=== PATIENT | female | born 1965 | race Caucasian/White ===

== ENCOUNTER 2017-02-17 18:28 | Emergency (ER) | payer OTHER ==
--- NOTE | ~2017-02-17 | CR151 ---
[facility] A Service of [facility] & [facility] RADIOLOGY TEXT RESULTS PATIENT: CHALO WELCH LOCATION: [facility] : 67 UNIT #: [id number] AGE: [address]: Bryson Wayne MD SEX: F ORDER DR: [id number] [facility] [address] [place], [place] [address] [id number] E MR#: [id number] Acc #: [id number] NAME: CHALO WELCH : 1965 SEX: F STUDY DATE/TIME: 02/17/2017 18:56 UNIT: [facility] ROOM: STUDY DESCRIPTION: CR Hip Min 2 Views Rt Attending Physician: Bryson Wayne M.D. Ordering Physician: Bryson Wayne M.D. Primary Care Physician: Glenna Escobar Aprn MEDICAL IMAGING REPORT This report is preliminary unless electronic signature is present EXAM Right hip and pelvis. HISTORY Right hip pain beginning 6 hours ago. No known injury. FINDINGS AP and oblique examination of the hip shows adequate mineralization of the bones and a normal anatomic relationship of the femoral head with the acetabulum. There are no hypertrophic changes, fractures, dislocation, or joint capsular distension. No radiopaque foreign body is present about the soft tissues of the hip. IMPRESSION Normal right hip. Dictated by... Josafat Hernandez M.D. THIS IS AN ELECTRONICALLY VERIFIED REPORT Josafat Hernandez M.D. at 02/18/2017 2:05 PM Mishel TD: 02/17/2017 21:27 JOB #: [id number] MEDICAL IMAGING REPORT Page 1 of 1 COPY
[~2017-02-17 18:28] MED LIST: ALBUTEROL MININEB NEB; ALBUTEROL17 GM INH; ASPIRIN325 M1; LEVAQUIN PO; LEVAQUIN750 MG PO; METHADONE PO; PREDNISONE PO; XANAX1 MG PO
== END 2017-02-17 20:26 | disposition home or self-care (01) ==
LOC: CED 18:28
DX: S39.012A Strain of muscle, fascia and tendon of lower back, initial encounter (principal); M54.41 Lumbago with sciatica, right side; Z88.2 Allergy status to sulfonamides; X58.XXXA Exposure to other specified factors, initial encounter; Y92.89 Other specified places as the place of occurrence of the external cause
CPT/HCPCS: 73502; 96372; 99283; J1885